=== PATIENT | male | born 1940 | race Caucasian/White ===

== ENCOUNTER → 2019-07-17 | Outpatient (CLI) | payer MEDICARE, OTHER | LOC: YCFC.O 09:35 | PROVIDERS: ATTEND Family Medicine | DX: E78.5 Hyperlipidemia, unspecified (principal); E11.9 Type 2 diabetes mellitus without complications; I25.10 Atherosclerotic heart disease of native coronary artery without angina pectoris; I10 Essential (primary) hypertension; R53.83 Other fatigue; Z12.5 Encounter for screening for malignant neoplasm of prostate ==

== ENCOUNTER → 2019-08-07 | Outpatient (CLI) | payer OTHER | LOC: NM 10:21 | PROVIDERS: ATTEND Family Medicine | DX: R94.31 Abnormal electrocardiogram [ECG] [EKG] (principal) ==

== ENCOUNTER → 2019-08-25 | Outpatient (CLI) | payer OTHER | DX: M50.122 Cervical disc disorder at C5-C6 level with radiculopathy (principal); M48.02 Spinal stenosis, cervical region; M51.16 Intervertebral disc disorders with radiculopathy, lumbar region; I66.02 Occlusion and stenosis of left middle cerebral artery; Z98.1 Arthrodesis status ==

== ENCOUNTER → 2019-08-26 | Outpatient (CLI) | payer MEDICARE, OTHER ==
--- NOTE | 2019-08-27 15:20 | MRI ---
EXAM DESCRIPTION: Lumbar Spine w/o Contrast : Magnetic Resonance Imaging. CLINICAL HISTORY: INTERVERTEBRAL DISC DISORDERS W RADICULOPATHY, LUMBAR REGION COMPARISON: MRI scan cervical spine August 24. TECHNIQUE: Multiplanar, multiple standard sequences, non contrast MRI, lumbar spine. FINDINGS: L5-S1: The disc is well visualized on axial T2 series 501, image 3. L5-S1: Minimal narrowing of the posterior disc space with mild endplate reactive changes. Disc desiccated. Hypertrophic degeneration in the facet joints and posterior flavum ligaments (canal elements). AP canal diameter 10 mm. Moderate narrowing of the right foramen and mild stenosis left foramen. L4-L5: Disc desiccation with moderate endplate reactive changes in the midline into the right of midline. Minimal disc space narrowing on the left. Grade 1 anterolisthesis 3 mm. Posterior broad-based disc bulge 5 mm. Degenerative hypertrophy of the canal elements. AP canal diameter 5.8 mm. Bilateral foraminal stenosis more on the left. Bilateral subarticular recess stenosis more left than right L3-L4: Posterior endplate reactive changes. Grade 1 anterolisthesis 2 mm. Posterior broad-based disc bulge. Mild to moderate degenerative hypertrophy of the canal elements. AP canal diameter 6.5 mm. Mild to moderate left foraminal narrowing and moderate to severe right foraminal narrowing. Bilateral subarticular recess stenosis. L2-L3: Disc desiccation with anterior bulging and minimal posterior bulging. Grade 1 retrolisthesis 2 mm. Mild degenerative hypertrophy of the canal elements. AP canal diameter 12 mm. Bilateral moderate to severe foraminal narrowing. Bilateral subarticular recess narrowing. L1-L2: Normal signal in the disc with disc space preserved. Minimal hypertrophy of the flavum ligaments. AP canal diameter 13 mm. Mild narrowing of the bilateral foramina. T12-L1: Normal signal in the disc with disc space preserved. Canal elements unremarkable. Canal and foramina are patent. Conus terminates at T12-L1. Levoscoliosis lower lumbar spine. Paravertebral soft tissues negative. Distal cord normal signal and caliber. Unremarkable marrow signal in the remaining vertebral bodies and the posterior elements. Vertebral bodies are not compressed at any level. IMPRESSION: 1. 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 Multiple levels of facet joint and flavum ligament hypertrophy. 2. Multifactorial mild central canal stenosis at L5-S1. Mild stenosis of the left foramen. Correlate for left L4 radiculopathy. 3. Multifactorial central canal stenosis at L4-L5. Bilateral subarticular recess stenosis left more than right with possible compromise of the descending L5 nerve roots. Grade 1 anterolisthesis. 4. L3-L4 severe central canal stenosis is multifactorial with moderate to severe right foraminal narrowing and bilateral subarticular recess stenosis. Correlate for bilateral L4 radiculopathy and right L3 radiculopathy. Electronically signed by: Elvis Elmore MD 08/27/2019 3:19 PM CDT
== END ==
LOC: MRI 14:00
PROVIDERS: ATTEND Psychiatry & Neurology Neurology
DX: M51.16 Intervertebral disc disorders with radiculopathy, lumbar region (principal); M51.36 Other intervertebral disc degeneration, lumbar region; M43.16 Spondylolisthesis, lumbar region; M48.061 Spinal stenosis, lumbar region without neurogenic claudication; M24.28 Disorder of ligament, vertebrae; M46.96 Unspecified inflammatory spondylopathy, lumbar region; M50.122 Cervical disc disorder at C5-C6 level with radiculopathy; I66.02 Occlusion and stenosis of left middle cerebral artery

== ENCOUNTER → 2019-08-27 | Outpatient (CLI) | payer OTHER | DX: Z87.891 Personal history of nicotine dependence (principal); J43.9 Emphysema, unspecified; R91.8 Other nonspecific abnormal finding of lung field; I65.23 Occlusion and stenosis of bilateral carotid arteries | CPT/HCPCS: 93880; G0297 ==

== ENCOUNTER → 2019-09-01 | Outpatient (CLI) | payer MEDICARE | DX: I65.23 Occlusion and stenosis of bilateral carotid arteries (principal); I77.9 Disorder of arteries and arterioles, unspecified ==

== ENCOUNTER → 2020-02-02 | Outpatient (CLI) | payer MEDICARE | LOC: YCFC.O 10:24 | PROVIDERS: ATTEND Family Medicine | DX: M10.9 Gout, unspecified (principal); D64.9 Anemia, unspecified; R53.83 Other fatigue; E78.5 Hyperlipidemia, unspecified; R97.20 Elevated prostate specific antigen [PSA]; E11.9 Type 2 diabetes mellitus without complications; Z79.899 Other long term (current) drug therapy ==

== ENCOUNTER → 2020-05-04 | Outpatient (CLI) | payer MEDICARE | LOC: YCFC.O 16:08 | PROVIDERS: ATTEND Family Medicine | DX: E11.9 Type 2 diabetes mellitus without complications (principal) ==